=== PATIENT | male | born 1960 | race Caucasian/White ===

== ENCOUNTER 2016-10-15 08:51 | Inpatient (IN) | payer MEDICARE, MEDICAID ==
[~2016-10-15] VITALS: Ht 358.1 cm; Wt 104.0 kg
[~2016-10-15 08:51] MED LIST: DILANTIN 100MG100 MG PO; PHENOBARBITAL100 M1; UNABLE
[2016-11-13] MEDS ORDERED: CELEXA40 MG PO (15:13)
[2016-11-13] MEDS ORDERED: PHENOBARBITAL97.2 MG PO (15:14)
[2016-11-13] MEDS ORDERED: COGENTIN 2MG2 MG/TA1 PO (15:15)
[2016-11-13] MEDS ORDERED: NEURONTIN600 MG/TAB PO (15:15)
[2016-11-13] MEDS ORDERED: CALCIUM 600-D 61 TAB PO (15:16)
[2016-11-13] MEDS ORDERED: MELLARIL PO (15:16)
[2016-11-13] MEDS ORDERED: DILANTIN 100MG100 MG PO (15:17)
[2016-11-13] MEDS ORDERED: ZONEGRAN 100MG100 MG PO (15:17)
[2016-11-13] MEDS ORDERED: MOBIC15 MG PO (15:18)
[2016-11-13] MEDS ORDERED: VITAMIN D 1001000 IU PO (15:18)
[2016-11-13] MEDS ORDERED: PATADAY 2.5 ML2.5 ML OU ×2 (15:19→15:20)
[2016-11-13] MEDS ORDERED: SYSTANE 0.4%-0.1 SOL OU (15:19)
[2016-11-13] MEDS ORDERED: TEARS-ARTIFICIA15 ML OU (15:20)
[2016-12-14] VITALS (10 sets, daily range): BP systolic 103–142; BP diastolic 65–83; PULSE 56–79; TEMP 97.5–97.6
[2016-12-14] MEDS ORDERED: VITAMIN D1000 IU PO (15:19)
[2016-12-15 00:30] VITALS: BP 140/76; PULSE 66; TEMP 98.1
[2016-12-15 04:07] VITALS: BP 132/67; PULSE 72; TEMP 98.1
[2016-12-15 06:41] LABS: HEMOGLOBIN 10.1 g/dl (13.5-18.0)
[2016-12-15 07:41] VITALS: BP 133/67; PULSE 77; TEMP 98.3
[2016-12-15 12:09] VITALS: BP 132/77; PULSE 98
[2016-12-15 15:50] VITALS: BP 121/58; PULSE 88
[2016-12-15 20:47] VITALS: BP 144/93; PULSE 91; TEMP 98.3
[2016-12-16 00:05] VITALS: BP 136/67; PULSE 90; TEMP 98.5
[2016-12-16 04:20] VITALS: BP 139/67; PULSE 89; TEMP 98.6
[2016-12-16 06:53] LABS: HEMOGLOBIN 9.8 g/dl (13.5-18.0)
[2016-12-16 07:35] VITALS: BP 119/58; PULSE 83; TEMP 98.3
[2016-12-16 15:54] VITALS: BP 130/78; PULSE 80
[2016-12-16 22:05] VITALS: BP 163/72; PULSE 97; TEMP 98.4
[2016-12-17 00:53] VITALS: BP 114/57; PULSE 85; TEMP 98.2
[2016-12-17 04:52] VITALS: BP 156/64; PULSE 81; TEMP 98.7
[2016-12-17 07:38] VITALS: BP 95/56; PULSE 68; TEMP 97.5
[2016-12-17 11:33] VITALS: BP 110/57; PULSE 85; TEMP 98.1
== END 2016-12-17 17:06 | DRG 470 ==
LOC: JCC 12-14 06:59
PROVIDERS: Orthopaedic Surgery
PROC: 0SRD0J9 Replacement of Left Knee Joint with Synthetic Substitute, Cemented, Open Approach (ICD-10-PCS; principal; 2016-12-14 10:00)
DX: M17.12 Unilateral primary osteoarthritis, left knee (principal); F79 Unspecified intellectual disabilities; G20 Parkinson's disease; R33.9 Retention of urine, unspecified
CPT/HCPCS: A4315; A9284; C1713; C1776; J0690; J1100; J2250; J2405; J2704; J3010; J7042; J7120

== ENCOUNTER 2016-11-13 14:07 | Day surgery (SDC) | payer MEDICARE, MEDICAID ==
[2016-11-13] VITALS (7 sets, daily range): BP systolic 123–143; BP diastolic 70–75; PULSE 52–78; TEMP 97.3–97.5
[~2016-11-13] VITALS: Ht 175.3 cm; Wt 106.6 kg
[2016-11-13] MEDS ORDERED: CELEXA40 MG PO (15:13)
[2016-11-13] MEDS ORDERED: PHENOBARBITAL97.2 MG PO (15:14)
[2016-11-13] MEDS ORDERED: COGENTIN 2MG2 MG/TA1 PO (15:15)
[2016-11-13] MEDS ORDERED: NEURONTIN600 MG/TAB PO (15:15)
[2016-11-13] MEDS ORDERED: MELLARIL PO (15:16)
[2016-11-13] MEDS ORDERED: CALCIUM 600-D 61 TAB PO (15:16)
[2016-11-13] MEDS ORDERED: ZONEGRAN 100MG100 MG PO (15:17)
[2016-11-13] MEDS ORDERED: DILANTIN 100MG100 MG PO (15:17)
[2016-11-13] MEDS ORDERED: MOBIC15 MG PO (15:18)
[2016-11-13] MEDS ORDERED: VITAMIN D 1001000 IU PO (15:18)
[2016-11-13] MEDS ORDERED: SYSTANE 0.4%-0.1 SOL OU (15:19)
[2016-11-13] MEDS ORDERED: PATADAY 2.5 ML2.5 ML OU ×2 (15:19→15:20)
[2016-11-13] MEDS ORDERED: TEARS-ARTIFICIA15 ML OU (15:20)
== END 2016-11-13 23:32 | disposition home or self-care (01) ==
LOC: SDCO 14:07 → SURG 18:35 → SDCO 23:32
DX: K02.9 Dental caries, unspecified (principal); K00.6 Disturbances in tooth eruption; F79 Unspecified intellectual disabilities; F44.5 Conversion disorder with seizures or convulsions; I10 Essential (primary) hypertension; Z86.010 Personal history of colon polyps; F32.9 Major depressive disorder, single episode, unspecified; G40.909 Epilepsy, unspecified, not intractable, without status epilepticus; M17.9 Osteoarthritis of knee, unspecified; G89.29 Other chronic pain; G20 Parkinson's disease
CPT/HCPCS: OP; J1100; J2405; J2704; J3010; J7120

== ENCOUNTER 2017-01-20 08:05 | Day surgery (SDC) | payer MEDICARE, MEDICAID ==
[~2017-01-20] VITALS: Ht 172.7 cm; Wt 107.3 kg
[~2017-01-20 08:05] MED LIST changes: +CALCIUM 600-D 61 TAB PO; +CELEXA40 MG PO; +COGENTIN 2MG2 MG/TA1 PO; +MELLARIL PO; +MOBIC15 MG PO; +NEURONTIN600 MG/TAB PO; +PATADAY 2.5 ML2.5 ML OU; +PHENOBARBITAL97.2 MG PO; +SYSTANE 0.4%-0.1 SOL OU; +TEARS-ARTIFICIA15 ML OU; +VITAMIN D 1001000 IU PO; +VITAMIN D1000 IU PO; +ZONEGRAN 100MG100 MG PO
[2017-01-20 08:44] VITALS: BP 138/83; PULSE 75; TEMP 97.3
[2017-01-20] MEDS ORDERED: CELEXA40 MG PO (09:12)
[2017-01-20] MEDS ORDERED: DILANTIN 100MG100 MG PO ×2 (09:12→09:19)
[2017-01-20] MEDS ORDERED: PHENOBARBITAL97.2 MG PO (09:13)
[2017-01-20] MEDS ORDERED: COGENTIN 2MG2 MG/TA1 PO (09:14)
[2017-01-20] MEDS ORDERED: MELLARIL PO (09:16)
[2017-01-20] MEDS ORDERED: NEURONTIN600 MG/TAB PO (09:16)
[2017-01-20] MEDS ORDERED: CALCIUM CITRAT200 M2 PO (09:17)
[2017-01-20] MEDS ORDERED: ZONEGRAN 100MG100 MG PO (09:18)
[2017-01-20] MEDS ORDERED: [UNRECOGNIZED DRUG - OTHER] OP (09:19)
[2017-01-20] MEDS ORDERED: MOBIC15 MG PO (09:20)
[2017-01-20] MEDS ORDERED: VITAMIN D31000 I1 PO (09:21)
[2017-01-20] MEDS ORDERED: SYSTANE 0.4%-0.1 SOL OP (09:22)
[2017-01-20] MEDS ORDERED: PATADAY 2.5 ML2.5 ML OU ×2 (09:22→09:23)
[2017-01-20] MEDS ORDERED: GLUCOPHAGE500 MG/TAB PO (09:23)
[2017-01-20] MEDS ORDERED: BLINK OP (09:24)
[2017-01-20] MEDS ORDERED: [UNRECOGNIZED DRUG - SUPPLY] OP (09:26)
== END 2017-01-20 11:25 | disposition home or self-care (01) ==
LOC: SDCO 08:05
DX: N40.1 Benign prostatic hyperplasia with lower urinary tract symptoms (principal); N39.43 Post-void dribbling; R35.0 Frequency of micturition; R35.1 Nocturia; J32.9 Chronic sinusitis, unspecified; I10 Essential (primary) hypertension; G20 Parkinson's disease; Z96.652 Presence of left artificial knee joint

== ENCOUNTER 2017-03-31 07:29 | Observation (INO) | payer MEDICARE, MEDICAID ==
[~2017-03-31] VITALS: Ht 172.7 cm; Wt 106.4 kg
[2017-03-31] VITALS (10 sets, daily range): BP systolic 96–135; BP diastolic 64–87; PULSE 63–85; TEMP 97.1–98.3
[~2017-03-31 07:29] MED LIST changes: +BLINK OP; +CALCIUM CITRAT200 M2 PO; +GLUCOPHAGE500 MG/TAB PO; +SYSTANE 0.4%-0.1 SOL OP; +VITAMIN D31000 I1 PO; +[UNRECOGNIZED DRUG - OTHER] OP; +[UNRECOGNIZED DRUG - SUPPLY] OP
[2017-03-31] MEDS ORDERED: DILANTIN 100MG100 MG PO ×2 (08:32)
[2017-03-31] MEDS ORDERED: PHENOBARBITAL100 M1 PO (08:33)
[2017-03-31] MEDS ORDERED: CELEXA40 MG PO (08:33)
[2017-03-31] MEDS ORDERED: MELLARIL PO (08:34)
[2017-03-31] MEDS ORDERED: COGENTIN 2MG2 MG/TA1 PO (08:34)
[2017-03-31] MEDS ORDERED: NEURONTIN600 MG/TAB PO (08:34)
[2017-03-31] MEDS ORDERED: CALCIUM CITRAT200 M2 PO (08:35)
[2017-03-31] MEDS ORDERED: ZONEGRAN50 MG PO (08:36)
[2017-03-31] MEDS ORDERED: MOBIC15 MG PO (08:37)
[2017-03-31] MEDS ORDERED: FLOMAX 0.40.4 MG/CAP PO (08:38)
[2017-03-31] MEDS ORDERED: VITAMIN D 1001000 IU PO (08:38)
[2017-03-31] MEDS ORDERED: PROSCAR 5MG5 MG PO (08:39)
[2017-04-01] VITALS (7 sets, daily range): BP systolic 123–143; BP diastolic 63–89; PULSE 76–98; TEMP 98.1–99.2
[2017-04-02 03:58] VITALS: BP 136/74; PULSE 84; TEMP 97.8
[2017-04-02 09:37] VITALS: BP 136/79; PULSE 73; TEMP 97.7
[2017-04-02 13:20] VITALS: BP 119/72; PULSE 61; TEMP 97.9
[2017-04-02 18:20] VITALS: BP 158/92; PULSE 69; TEMP 97.9
== END 2017-04-02 18:45 | disposition home health service (06) ==
LOC: SDCO 07:29 → SURG 13:25 → SDCO 14:45 → SURG 04-01 14:45 → SDCO 04-02 13:38 → SURG 04-02 13:38
DX: N40.1 Benign prostatic hyperplasia with lower urinary tract symptoms (principal); R33.8 Other retention of urine; R35.1 Nocturia; R35.0 Frequency of micturition; J32.9 Chronic sinusitis, unspecified; I10 Essential (primary) hypertension; G20 Parkinson's disease; R56.9 Unspecified convulsions; F32.9 Major depressive disorder, single episode, unspecified; M19.90 Unspecified osteoarthritis, unspecified site; Z96.652 Presence of left artificial knee joint
CPT/HCPCS: OP; G0378; J0690; J2370; J2405; J2704; J3010; J7120

== ENCOUNTER 2018-12-17 11:30 | Inpatient (IN) | payer MEDICARE, MEDICAID ==
[~2018-12-17] VITALS: Ht 177.8 cm; Wt 111.4 kg
[~2018-12-17 11:30] MED LIST changes: +FLOMAX 0.40.4 MG/CAP PO; +PHENOBARBITAL100 M1 PO; +PROSCAR 5MG5 MG PO; +ZONEGRAN50 MG PO
[2018-12-17 12:32] LABS: MEAN CELL VOLUME 93 fl (80.0-100.0); MEAN CORPUSCULAR HEMOGLOBIN 32 pg (27.0-31.0); MEAN CORPUSCULAR HGB CONC 34 g/dl (33.0-37.0); MEAN PLATELET VOLUME 9.2 fl (7.4-10.4); PLATELET COUNT 269 K/mm3 (130-400); RED BLOOD COUNT 3.46 M/mm3 (4.20-5.60); REDCELL DISTRIBUTION WIDTH-CV 12.4 % (11.5-14.5)
[2018-12-17 12:36] LABS: HEMATOCRIT 32.1 % (42.0-52.0)
[2018-12-17 12:51] LABS: ALBUMIN 3.9 gm/dL (3.5-5.0); BILIRUBIN,TOTAL 0.3 mg/dL (0.0-1.0); CALCIUM 8.7 mg/dL (8.4-10.2); CREATININE, serum 0.98 (0.66-1.25); POTASSIUM 4.2 mmol/L (3.4-5.0); TOTAL PROTEIN 6.7 gm/dL (6.4-8.2)
[2018-12-17] MEDS ORDERED: PATADAY 2.5 ML2.5 ML OU (12:54)
[2018-12-17] MEDS ORDERED: ZYPREXA2.5 MG PO (12:55)
[2018-12-17] MEDS ORDERED: PRINIVIL5 MG PO (12:56)
[2018-12-17 13:11] LABS: BAND 16 % (0-10); LYMPHOCYTE 11 % (20.0-51.0); NEUTROPHILS 70 % (42.0-75.2); PLATELET ESTIMATE NORMAL (NORMAL)
[2018-12-17 21:15] VITALS: BP 97/53; PULSE 66; TEMP 96.9
[2018-12-17 21:30] VITALS: BP 95/64; PULSE 68
--- NOTE | 2018-12-17 21:44 | NUR ---
Patient to the floor at 2115. Post-op vitals initiated. Patient requested cell phone to make some calls. Alert and oriented. Able to wiggle toes at this time.
[2018-12-17 21:45] VITALS: BP 102/57; PULSE 70
[2018-12-17 21:46] LABS: HEMATOCRIT 29.7 % (42.0-52.0); HEMOGLOBIN 9.8 g/dl (13.5-18.0)
[2018-12-17 22:00] VITALS: BP 113/63; PULSE 65
[2018-12-17 22:30] VITALS: BP 112/81; PULSE 65
[2018-12-17 23:00] VITALS: BP 108/56; PULSE 67
[2018-12-18] VITALS (8 sets, daily range): BP systolic 109–140; BP diastolic 56–74; PULSE 64–110; TEMP 97.4–98.8
--- NOTE | 2018-12-18 05:32 | NUR ---
Patient noted to whistle to try to get staff's attention, and cristina, "heyair". Patient requested to get out of bed and education given about bedrest orders. Patient noted to sleep off and on throughout the night. Left leg able to move and sensation has returned. Will continue to monitor.
[2018-12-18 06:49] LABS: MEAN CELL VOLUME 94 fl (80.0-100.0); MEAN CORPUSCULAR HGB CONC 33 g/dl (33.0-37.0); MEAN PLATELET VOLUME 9.8 fl (7.4-10.4); PLATELET COUNT 173 K/mm3 (130-400); RED BLOOD COUNT 2.86 M/mm3 (4.20-5.60); REDCELL DISTRIBUTION WIDTH-CV 13.8 % (11.5-14.5)
[2018-12-18 06:57] LABS: CALCIUM 7.7 mg/dL (8.4-10.2); CREATININE, serum 0.82 (0.66-1.25); POTASSIUM 4.5 mmol/L (3.4-5.0)
[2018-12-18 07:15] LABS: HEMATOCRIT 26.9 % (42.0-52.0); HEMOGLOBIN 8.8 g/dl (13.5-18.0); MEAN CORPUSCULAR HEMOGLOBIN 31 pg (27.0-31.0)
[2018-12-18 08:46] LABS: BAND 1 % (0-10); LYMPHOCYTE 6 % (20.0-51.0); NEUTROPHILS 80 % (42.0-75.2); PLATELET ESTIMATE NORMAL (NORMAL)
--- NOTE | 2018-12-18 10:04 | NUR ---
LAN met with the patient to discuss a discharge plan. The pt lives in [place]. He attends day services at [facility]. The pt has a cane and reports independence with ADLs. The pt's PCP is Dr. Jeter and pt receives his medications from [facility] with no difficulties. The pt does not have advanced directives in the EMR. The pt plans to return home upon discharge. [facility] staff or his brother will give him a ride home. There are no additional needs at this time.
--- NOTE | 2018-12-18 11:00 | NUR ---
Patient has been doing well today. Denies nausea. Minimal complaints of pain. Has not wanted pain medications this am. One pain pill given earlier before patient worked with PT. Dressing to left leg is C/D/I. SCD's to BLE. СВЕТЛАНА hose to right leg, he would not let us put on the left leg. No other changes at this time. Call light within reach.
--- NOTE | 2018-12-18 18:07 | NUR ---
Patient has been doing well today. He did not get up today but plan is for PT to get him up to the chair tomorrow. His brother came to visit. Patient has not wanted anything for pain. No complaints of nausea. Encouraged him to do ankle pumps. Reminded him to do deep breathing exercises. He verbalized understanding. His car rental sales assistant brought his medications from [facility] that we do not carry, did not sent to pharmacy as they are not here. Placed in patients bin. No other changes at this time. Call light within reach.
--- NOTE | 2018-12-18 21:46 | NUR ---
Pt. laying in bed at this time. Pt. is A&OX3, assessment complete. INT to lt. wrist patent. Dressing to LLE CDI. Jcakson catheter to DD, clear yellow urine noted. Pt. denies pain or other needs at this time.
[2018-12-19 03:43] VITALS: BP 133/67; PULSE 105; TEMP 98.3
[2018-12-19 07:14] LABS: CALCIUM 8.3 mg/dL (8.4-10.2); CREATININE, serum 0.98 (0.66-1.25); POTASSIUM 4.2 mmol/L (3.4-5.0)
[2018-12-19 07:23] LABS: HEMATOCRIT 24.3 % (42.0-52.0)
--- NOTE | 2018-12-19 08:00 | NUR ---
PATIENT IS A&O. PATIENT LIVES AT WHERE HE FELL AND FX HIS LEFT FEMUR. LLE DRESSING IS CD&I WITH ACEWRAP. NOTED +2 SWELLING TO LLE. POSITIVE PEDAL PULSES. PATIENT AMBULATED 1 ASSIST WITH WALKER. PT/OT WORKING WITH HIM. AMBERLY LIU'Kayode EARLY THIS AM BY NUTS AND BOLTS ASSEMBLER. PATIENT DENIES NEED TO VOID AT THIS TIME. NO C/O N/V. IV TO INT. PATIENT REFUSES BREAKFAST AT THIS TIME. AM MEDS GIVEN. HEAD TO TOE ASSESSENT WNL. NO OTHER NEEDS. CALL LIGHT IN REACH.
[2018-12-19 08:10] VITALS: BP 109/68; PULSE 110; TEMP 99.4
[2018-12-19 11:22] VITALS: BP 98/59; PULSE 109; TEMP 98.3
--- NOTE | 2018-12-19 11:30 | NUR ---
LAN attended clinical rounds. The hospitalist discussed therapies recommendation of post-acute rehab. The patient reports that he would be agreeable to rehab. LAN then followed up with the patient to discuss options. The patient reports that he has been to a facility in the past, but could not recall which one. The patient requested that SW contact Fede at [facility] and his brother, Mitch. LAN then contacted Fede, Residential Product Mgmt Dev Manager, at [facility] (ph#[phone]). Fede reports that the patient was at [facility]. She states that she also helps him with his finances. LAN then contacted the patient's brother, Mitch (ph#[phone]), to update on the clinical teams recommendation of post-acute rehab. LAN also discussed how the patient was observation status and how he does not have a qualifying stay for insurance to cover SNF. The patient's brother verbalized understanding. He reports he is in agreeance to the plan of post-acute rehab, but that the patient would not be able to afford to private pay anywhere. LAN then discussed [facility] and [facility]. The patient's brother is agreeable these facilities and to see if [facility] would be covered for services. LAN then met with the patient to review plan. The patient reports that he is agreeable to those three facilities. LAN presented and explained the patient choice form to the patient. The patient verbalized understanding, signed, and he was provided a copy. LAN contacted and faxed a referral to [facility] and [facility]. LAN consulted IPR Director, Aleisha. LAN to continue to follow.
--- NOTE | 2018-12-19 13:15 | NUR ---
PATIENT UNABLE TO VOID AFTER SEVERAL ATTEMPTS. INTEGRATION LEAD REMOVED GAMING BEFORE SHIFT CHANGE. PATIENT STILL DENIES URGE TO VOID. BLADDER SCAN SHOWED OVER 500CC. STRAIGHT CATHED PERFORMED AND UA SENT.
[2018-12-19 13:35] LABS: COLLECTION METHOD CLEAN CATCH
[2018-12-19 13:43] LABS: MUCOUS Present /lpf; PH 5 (5-8); SQUAMOUS EPITHELIAL 0-2 /hpf; URINE APPEARANCE Hazy; URINE BACTERIA Rare /hpf; URINE BILIRUBIN Negative (NEGATIVE); URINE BLOOD 2+ (NEGATIVE); URINE COLOR Yellow; URINE GLUCOSE Negative (NEGATIVE); URINE KETONE Negative (NEGATIVE); URINE LEUKOCYTE ESTERASE Negative (NEGATIVE); URINE NITRATE Negative (NEGATIVE); URINE PROTEIN(semi-quant) Negative (NEGATIVE); URINE RBC 0-2 /hpf; URINE UROBILINOGEN Negative (NEGATIVE)
[2018-12-19 15:51] VITALS: BP 133/52; PULSE 93; TEMP 98.5
--- NOTE | 2018-12-19 18:15 | NUR ---
PATIENT STILL HAS NOT VOIDED SINCE STRAIGHT CATH AROUND 1300. PATIENT DENIES NEED TO VOID. PATIENT AGREED TO TRY BUT WAS UNABLE TO VOID. BLADDER SCAN SHOWED 237CC. PATIENT ENCOURAGED TO INCREASE FLUIDS. WILL MONITOR.
[2018-12-19 20:00] VITALS: BP 130/59; PULSE 102; TEMP 99.6
--- NOTE | 2018-12-19 20:00 | NUR ---
Pt. laying in bed at this time. Pt. is A&OX3, assessment complete. INT to lt. wrist patent. Dressing to lt. leg CDI. Pt. assisted to the bathroom with 2 assist, gait belt and walker. Pt. attempted to urinate. Pt. was able to get 50 mls of urine out. Pt. reported that he sometimes has trouble with this at home. Will continue to monitor. Pt. denies pain or other needs at this time. Call light within reach.
--- NOTE | 2018-12-19 22:15 | NUR ---
Checked if pt. has the urge to urinate. Pt. denies urge. Pt. bladderscanned at this time. Pt. has 303 mls in bladder at this time according to the bladderscanner. Will continue to monitor.
[2018-12-19 23:37] VITALS: BP 119/56; PULSE 105; TEMP 98.5
[2018-12-20] VITALS (9 sets, daily range): BP systolic 99–139; BP diastolic 48–87; PULSE 85–106; TEMP 98–99.1
--- NOTE | 2018-12-20 03:00 | NUR ---
Pt. bladder scanned at this time. Bladder scanner report showed 600 mls to bladder. Pt. attempted to urinate without success. Straight cathed at this time. Pt. tolerated well. 900 mls from bladder.
[2018-12-20 07:16] LABS: MEAN CELL VOLUME 95 fl (80.0-100.0); MEAN CORPUSCULAR HGB CONC 34 g/dl (33.0-37.0); MEAN PLATELET VOLUME 9.7 fl (7.4-10.4); PLATELET COUNT 177 K/mm3 (130-400); REDCELL DISTRIBUTION WIDTH-CV 14.5 % (11.5-14.5)
--- NOTE | 2018-12-20 07:24 | NUR ---
report from Rosas BADILLO.
[2018-12-20 07:43] LABS: HEMATOCRIT 21.8 % (42.0-52.0); HEMOGLOBIN 7.3 g/dl (13.5-18.0); MEAN CORPUSCULAR HEMOGLOBIN 32 pg (27.0-31.0)
[2018-12-20 08:12] LABS: BASOPHIL 1 % (0-2); LYMPHOCYTE 9 % (20.0-51.0); NEUTROPHILS 86 % (42.0-75.2); PLATELET ESTIMATE NORMAL (NORMAL)
--- NOTE | 2018-12-20 09:05 | NUR ---
GAMING CATHETER PLACED WITH OUT ISSUES USING CLEAN TECHNIQUE. YELLOW CLEAR URINE RETURNED IMMEDIATELY UPON PLACEMENT, PATIENT TOLERATED PROCEEDURE WELL.
--- NOTE | 2018-12-20 09:32 | NUR ---
BLOOD TRANSFUSION BEGAN, GAMING PLACED PT TOLERATING WELL. [facility] REPS HERE TO SPEAK WITH PATIENT. PT DENIES PAIN AT THIS TIME.
--- NOTE | 2018-12-20 09:51 | NUR ---
Kt, at [facility], reports that they can accept the patient. SW to inform the patient and patient's brother and will continue to follow.
--- NOTE | 2018-12-20 11:41 | NUR ---
LAN contacted and faxed updates to Roly at [facility].
--- NOTE | 2018-12-20 15:39 | NUR ---
LAN contacted Fede, at [facility], to follow up on the services and support that they provide for the patient. Fede reports that they see him daily and that they take him grocery shopping, help with banking, light housekeeping, and provide transportation for him. Fede reports that if the patient is in need of more services upon discharge from either [facility], [facility], or [facility]; that they could transition him into a 24 hour longterm, if needed. LAN updated IPR Director, Aleisha. LAN to continue to follow.
--- NOTE | 2018-12-20 19:03 | NUR ---
report to Shaneka RN.
--- NOTE | 2018-12-20 20:30 | NUR ---
Patient assisted to BSC, thinks he needs to have a BM. Is NWB to left leg, has brace on and assisted with 2 staff/gait belt and walker. Only passes gas and assisted back to bed. Takes HS meds without problem. Denies pain to left leg. SL to left wrist without redness or swelling. Jackson to BSD with yellow urine.
[2018-12-21 04:15] VITALS: BP 131/61; PULSE 87; TEMP 98.6
--- NOTE | 2018-12-21 06:00 | NUR ---
Patient rested well this shift. Jackson draining yellow urine. Denies need for pain meds.
--- NOTE | 2018-12-21 06:52 | NUR ---
awake resting in bed, bedside shift report received from ABY Munroe
[2018-12-21 06:53] LABS: BASO % 0.4 % (0.0-2.0); GRAN # 5.2 (1.4-6.5); GRAN % 73.3 % (42.2-75.2); LYMPH # 0.8 (1.2-3.4); LYMPH % 11.2 % (20.0-51.0); MEAN CELL VOLUME 96 fl (80.0-100.0); MEAN CORPUSCULAR HGB CONC 32 g/dl (33.0-37.0); MEAN PLATELET VOLUME 9.6 fl (7.4-10.4); MONO % 14.1 % (1.7-9.3); PLATELET COUNT 216 K/mm3 (130-400); RED BLOOD COUNT 2.67 M/mm3 (4.20-5.60); REDCELL DISTRIBUTION WIDTH-CV 14.4 % (11.5-14.5)
[2018-12-21 06:54] LABS: HEMATOCRIT 25.6 % (42.0-52.0); HEMOGLOBIN 8.3 g/dl (13.5-18.0); MEAN CORPUSCULAR HEMOGLOBIN 31 pg (27.0-31.0)
[2018-12-21 07:07] LABS: CALCIUM 8.5 mg/dL (8.4-10.2); CREATININE, serum 0.87 (0.66-1.25); POTASSIUM 4.1 mmol/L (3.4-5.0)
[2018-12-21 07:55] VITALS: BP 107/58; PULSE 87; TEMP 98.2
--- NOTE | 2018-12-21 07:55 | NUR ---
awake resting in bed, full assessment completed, see interventions for further info, when asked about pain doesn't really acknowledge and optional pain scale used, offered breakfast and states he doesn't eat breakfast usually, encouraged and offered options but continues to decline, denies other needs
--- NOTE | 2018-12-21 10:00 | NUR ---
remains resting in bed, WHEAT FARMER in and assisted him with am care
--- NOTE | 2018-12-21 11:02 | NUR ---
First visit from the trade manager. No needs right now.
--- NOTE | 2018-12-21 11:30 | NUR ---
physical therapy in and assisted him with getting up to chair
[2018-12-21 11:57] VITALS: BP 113/43; PULSE 88; TEMP 98.2
[2018-12-21 13:19] VITALS: BP 113/43; PULSE 88; TEMP 98.2
--- NOTE | 2018-12-21 13:34 | NUR ---
Aleisha, IPR Director, reports that she can accept the patient. LAN updated the patient on referrals and he is agreeable to transfer to [facility] today. LAN updated Deborah at [facility] and Mi at [facility]. LAN contacted the patient's brother, Mitch, and updated him on the plan. The patient's brother is supportive of the patient tranferring to [facility]. LAN also attempted to contact Fede at [facility]. LAN left voicemail. The patient is to discharge today, 12/21, to [facility]. No additional needs at this time.
--- NOTE | 2018-12-21 13:52 | NUR ---
remains up in chair, Dr Thao in and will plan discharged to [facility]
[2018-12-21] MEDS ORDERED: ASPI325T6 PO (14:04)
[2018-12-21] MEDS ORDERED: NORCO 325 MG-7.1 TAB PO (14:04)
[2018-12-21] MEDS ORDERED: FLOMAX 0.40.4 MG/CAP PO (14:04)
[2018-12-21] MEDS ORDERED: GOOD NEIGH1200 MG/15 PO (14:06)
--- NOTE | 2018-12-21 14:17 | NUR ---
guse wrap to left leg removed, incision to lateral hip/knee with bisi CD&I, without drainage, aquacel dressing cut to fit and placed over incision, СВЕТЛАНА allen on
--- NOTE | 2018-12-21 14:30 | NUR ---
СВЕТЛАНА allen on
--- NOTE | 2018-12-21 15:25 | NUR ---
report given to ABY Mallory at [facility]patient Rehab, transferred per WC
[2018-12-22] MEDS ORDERED: DESYREL DIVIDO150 M1 PO (13:17)
== END 2018-12-21 15:25 | DRG 481 ==
LOC: COL.ER 11:30 → SURG 13:31 → COL.ER 13:31 → SURG 13:31
PROVIDERS: Nurse Anesthetist, Certified Registered; Nurse Practitioner; Nurse Practitioner Family; Orthopaedic Surgery; ADMIT Family Medicine
PROC: 0QSC04Z Reposition Left Lower Femur with Internal Fixation Device, Open Approach (ICD-10-PCS; principal; 2018-12-17 15:30)
DX: S72.402A Unspecified fracture of lower end of left femur, initial encounter for closed fracture (principal); E87.1 Hypo-osmolality and hyponatremia; D62 Acute posthemorrhagic anemia; I10 Essential (primary) hypertension; S80.212A Abrasion, left knee, initial encounter; F79 Unspecified intellectual disabilities; W18.30XA Fall on same level, unspecified, initial encounter; Y92.89 Other specified places as the place of occurrence of the external cause; R33.9 Retention of urine, unspecified; G20 Parkinson's disease; F32.9 Major depressive disorder, single episode, unspecified; G40.909 Epilepsy, unspecified, not intractable, without status epilepticus; Z96.652 Presence of left artificial knee joint; Z88.8 Allergy status to other drugs, medicaments and biological substances; Z88.2 Allergy status to sulfonamides
CPT/HCPCS: OP; 99232-AI; 99233-AI; 99239; A4216; A4314; C1713; C1776; G0378; J0690; J0696; J2250; J2270; J2370; J2405; J2704; J3010; J7030; P9016

== ENCOUNTER → 2019-01-02 | Outpatient (CLI) | payer MEDICARE, MEDICAID ==
[~2019-01-02] MED LIST changes: +ASPI325T6 PO; +COLACE 100100 MG/CAP PO; +DESYREL DIVIDO150 M1 PO; +DULCOLAX S10 MG/SUPP RC; +FERROUS SU325 MG/TAB PO; +GOOD NEIGH1200 MG/15 PO; +MIRALAX PA17 GM/Dose PO; +NORCO 325 MG-7.1 TAB PO; +PRINIVIL5 MG PO; +SENOKOT S 50 MG1 TAB PO; +TYLENOL 325MG325 MG PO; +ZYPREXA2.5 MG PO
[2019-01-02 18:41] LABS: BASO % 0.7 % (0.0-2.0); GRAN # 4.2 (1.4-6.5); LYMPH # 0.8 (1.2-3.4); LYMPH % 14.3 % (20.0-51.0); MEAN CELL VOLUME 98 fl (80.0-100.0); MEAN CORPUSCULAR HGB CONC 32 g/dl (33.0-37.0); MEAN PLATELET VOLUME 8.8 fl (7.4-10.4); MONO # 0.7 (0.1-0.6); MONO % 11.6 % (1.7-9.3); PLATELET COUNT 559 K/mm3 (130-400); RED BLOOD COUNT 3.02 M/mm3 (4.20-5.60); REDCELL DISTRIBUTION WIDTH-CV 13.9 % (11.5-14.5)
[2019-01-02 18:49] LABS: HEMATOCRIT 29.5 % (42.0-52.0); HEMOGLOBIN 9.4 g/dl (13.5-18.0); MEAN CORPUSCULAR HEMOGLOBIN 31 pg (27.0-31.0)
[2019-01-02 18:54] LABS: CALCIUM 9.1 mg/dL (8.4-10.2); CREATININE, serum 0.84 (0.66-1.25); POTASSIUM 4.7 mmol/L (3.4-5.0)
== END ==
LOC: ZCOL.LAB 16:36
PROVIDERS: Emergency Medicine
DX: D50.0 Iron deficiency anemia secondary to blood loss (chronic) (principal); I10 Essential (primary) hypertension

== ENCOUNTER → 2019-03-16 | Outpatient (CLI) | payer MEDICARE, MEDICAID ==
[2019-03-16 11:03] LABS: PHENYTOIN (DILANTIN) 3.1 ug/mL (10.0-20.0)
== END ==
LOC: ZCOL.LAB 09:46
PROVIDERS: Emergency Medicine
DX: D50.0 Iron deficiency anemia secondary to blood loss (chronic) (principal); E11.9 Type 2 diabetes mellitus without complications; E55.9 Vitamin D deficiency, unspecified; G20 Parkinson's disease

== ENCOUNTER 2019-05-18 11:30 | Outpatient (RCR) | payer MEDICARE, MEDICAID | END 2019-06-12 16:11 | disposition home or self-care (01) | LOC: WSC 11:30 | DX: Z98.890 Other specified postprocedural states (principal) ==

== ENCOUNTER 2023-06-15 12:14 | Inpatient (IN) | payer MEDICARE, MEDICAID ==
[~2023-06-15] VITALS: Ht 172.7 cm; Wt 98.7 kg
[~2023-06-15 12:14] MED LIST changes: +CALCIUM CITRAT200 M2; +CELEXA 20MG20 MG/TAB PO; +DUO-KAPS1 CAP PO; +LEVOXYL0.05 MG PO; +LIPITOR20 MG PO; +ROXICODONE 55 MG/TAB PO; +VITAMIN C500 MG PO
--- NOTE | 2023-06-15 12:45 | NUR ---
RECIEVED REPORT FROM [facility] MARINATOR AROUND 1238, PT WAS ALREADY IN THE ROOM. UPON INTRODUCING MYSELF TO PT HE IS ALERT AND ORIENTED TO SELF AND SITUATION. HES NOT CONFUSED HOWEVER DEVELOPMENTALLY DELAYED BEHAVIORS NOTED. VSS, SHIFT ASSESSMENT COMPLETE. PT HAS A GUARDIAN WHOM I THINK HE REFERS TO [facility]. HE ASKED ME TO SPEAK WITH HER TODAY AND I REFERRED HIM TO HAVE MRI TECHNICIAN SPEAK WITH HER. SLIGHTLY UNCLEAR SPEECH WHEN TELLING REPETITIVE STORIES. VERY PLEASANT GENTLEMAN, AND COOPERATIVE. AMBULATES WITH ONE PERSON ASSIST W FWW. DENIES PAIN AT THIS TIME, USES ICE PACK FOR L HIP DISCOMFORT. DENIES NEED FOR ANTHING FURTHER AT THIS TIME.
[2023-06-15 13:00] VITALS: BP_SYST 113
[2023-06-15] MEDS ORDERED: Acetaminophen 325 MG TAB PO PRN (13:00)
[2023-06-15] MEDS ORDERED: Sennosides/Docusate 8.6-50 MG TAB PO PRN (13:00)
[2023-06-15] MEDS ORDERED: Docusate Sodium 100 MG CAP PO PRN (13:00)
[2023-06-15] MEDS ORDERED: Naloxone 0.4 MG/ML VIAL IV PRN (13:00)
[2023-06-15] MEDS ORDERED: Polyethylene Glycol 3350 17 GM PDS PO PRN (13:00)
[2023-06-15] MEDS ORDERED: oxyCODONE 5 MG TAB PO PRN (13:15)
[2023-06-15] MEDS ORDERED: Ketotifen 0.025% Ophth Soln 5 ML BOTTLE OP SCH (14:00)
[2023-06-15] MEDS ORDERED: Gabapentin 300 MG CAP PO SCH (14:00)
[2023-06-15 14:43] VITALS: BP 113/69; PULSE 107; TEMP 97.6
[2023-06-15 17:22] VITALS: BP_SYST 113
[2023-06-15 18:02] VITALS: BP 125/72; PULSE 92; TEMP 98.2
[2023-06-15 19:00] VITALS: BP_SYST 125
--- NOTE | 2023-06-15 19:07 | NUR ---
RECEIVED CHANGE OF SHIFT REPORT FROM DAY SHIFT NURSE. PATIENT RESTING IN BED, EXIT ALARM ON, CALL LIGHT IN REACH.
[2023-06-15] MEDS ORDERED: OLANZapine 5 MG TAB PO SCH (20:00)
[2023-06-15] MEDS ORDERED: Citalopram 20 MG TAB PO SCH (20:00)
--- NOTE | 2023-06-15 20:40 | NUR ---
BLADDER SCAN AFTER VOIDED, 726 ML PER BLADDER SCAN. STRAIGHT CATH WITH 14 [place] STRAIGHT CATHETER, PER HOSP P/P, EMPTIED OUT 800 ML URINE. PATIENT TOLERATED STR CATH WITH NO VERBALIZED COMPLAINTS OF PAIN.
[2023-06-15] MEDS ORDERED: Zonisamide 100 MG CAP PO SCH (21:00)
[2023-06-15] MEDS ORDERED: Zonisamide 25 MG CAP PO SCH (21:00)
[2023-06-15] MEDS ORDERED: Benztropine 1 MG TAB PO SCH (21:00)
[2023-06-15] MEDS ORDERED: traZODone 50 MG TAB PO SCH (21:00)
[2023-06-15] MEDS ORDERED: Calcium Citrate/Vit D3 200 mg-250 Units TAB PO SCH (21:00)
[2023-06-15] MEDS ORDERED: PHENobarbital 32.4 MG TABLET PO SCH (21:00)
[2023-06-15] MEDS ORDERED: Atorvastatin 20 MG TAB PO SCH (21:00)
--- NOTE | 2023-06-16 04:36 | NUR ---
PATIENT ATTEMPTED TO VOID, UNABLE TO VOID WITH COMPLAINTS OF BLADDER FULLNESS AND DISCOMFORT FROM FULLNESS. STRAIGHT CATH PERFORMED, EMPTIED OUT 600 ML WITH PATIENT REPORTING DISCOMFORT SUBSIDED AND BLADDER NO LONGER FELT FULL. RESTING IN BED, EXIT ALARM ON, CALL LIGHT IN REACH.
[2023-06-16 05:20] VITALS: BP 142/65; PULSE 75; TEMP 98.7
[2023-06-16 07:00] VITALS: BP_SYST 142
--- NOTE | 2023-06-16 07:22 | NUR ---
CHANGE OF SHIFT REPORT GIVEN TO DAY SHIFT NURSE, CARLENE. DR ANDRADE PRESENT AND INFORMED OF PATIENT NEEDS TO BE STRAIGHT CATH X2 DURING NIGHT. PATIENT RESTING IN BED WITH EXIT ALARM ON, CALL LIGHT IN REACH.
--- NOTE | 2023-06-16 08:00 | NUR ---
PT IS ALERT, ORIENTED TO SELF AND PLACE. ASSESSED. DENIES PAIN THIS MORNING, HE DOES NOT EAT BREAKFAST, ONLY CHEESEBURGERS WITH SCOTTISH CHEESE AND KETCHUP AND FRIES WITH A FRUIT CUP FOR LUNCH AND DINNER. NURING STAFF HAS TO CALL FOR HIM. PT NOT ABLE TO CALL. MEDICATED PER EMAR, CALL LIGHT WITHIN REACH. BED ALARM SET.
[2023-06-16] MEDS ORDERED: OLOPATADINE 0.2% OP SCH (09:00)
[2023-06-16] MEDS ORDERED: [UNRECOGNIZED DRUG - OTHER] OP SCH (09:00)
[2023-06-16] MEDS ORDERED: Ascorbic Acid 500 MG TAB PO SCH (09:00)
[2023-06-16] MEDS ORDERED: Multivitamin TAB PO SCH (12:00)
--- NOTE | 2023-06-16 12:10 | NUR ---
Will lack of transportation kept you from medical appts, meetings, work, or from getting things needed for daily living? no How often do you feel lonely or isolated from those around you? never Over the past 5 days, how much of the time has pain made it hard for you to sleep? occasionally Over the past 5 days, how often have you limited your participation in therapy due to pain? occasionally Over the past 5 days, how often have you limited your day-to-day activities because of pain? occasionally Have you had 2 or more falls in the past year or any fall with an injury? yes Did you have major surgery during the 100 days prior to admission? yes
--- NOTE | 2023-06-16 12:43 | NUR ---
PT WAS BLADDER SCANNED AND WAS FOUND TO HAVE 224ML IN BLADDER. WILL CONTINUE TO OFFER RESTROOM, AND SCAN PER ORDERS.
--- NOTE | 2023-06-16 13:49 | NUR ---
Follow-up: Patient told [employer] Flatbed Truck Driver to come in and set down and he would tell her what is going on with him. listened to Henrry who explained how to reach his Guardian and various other bits of information. mentioned that he must be really working hard and he said he is and will be discharged after five weeks. wished him well several times before Henrry would take notice that she was leaving. Nurse thanked for visiting.
--- NOTE | 2023-06-16 15:02 | NUR ---
PT WAS ABLE TO VOID AND HAVE A BOWEL MOVEMENT THIS AFTERNOON.
--- NOTE | 2023-06-16 16:27 | NUR ---
SW attend team meeting for pt regaridng discharge planning. Pt is a re-eval for next week. No known equipment needs at this time. LAN met with pt and provided team conference notes. He was not fully oriented to LAN and what she was saying. He instructed SW to call Dr. Edgar [phone]. LAN called co-guardian Dr. Edgar and completed intake information. She confirms pt lives alone in [place]. She reports he sees Dr. Hopson and obtains medications from [facility] with no issues. She reports he has no stairs at his apartment and [employer] assists with driving him to appointments. He has a rolator walker for DME. He needs prompting for ADLS. LAN verified guardianship on file. LAN sent updates to [employer]. SW recieved guardianship papers from them. Placed on the chart. Discharge Plan: re-eval
[2023-06-16 17:43] VITALS: BP 119/66; PULSE 84; TEMP 98.1
[2023-06-16 18:30] VITALS: BP_SYST 119
--- NOTE | 2023-06-16 19:00 | NUR ---
PT DENIED NEED TO VOID. BLADDER SCAN WITH 224 CC RESIDUAL.
--- NOTE | 2023-06-16 21:00 | NUR ---
PT RESTING IN SPECIALTY BED. ALERT & ORIENTED. VOICE IS LOUD. SPEECH SOMETIMES DIFFICULT TO UNDERTAND. VERY PLEASANT AND COOPERATIVE. PT C/O LT HIP PAIN. SEE MAR FOR OXYCODONE GIVEN. FRESH ICE PACK TO LT HIP PLACED. ENC PT TO SHIFT WEIGHT PERIODICALLY- SEE SKIN ASSESSMENT. ENC ANKLE EXERCISES TO PROMOTE CIRCULATION. REQUESTED PT TO ATTEMPT VOID. DENIES NEED. WOULD NOT TRY. BLADDER SCANNED WITH 501ML. NO REDNESS TO GROIN AREAS REPORTED FROM LAST NURSE. SEIZURE PRECAUTIONS IN PLACE.
--- NOTE | 2023-06-17 01:30 | NUR ---
LICENSED REACTOR OPERATOR ASSISTED PT TO BR. UNABLE TO VOID. BLADDER SCANNED 1000CC.
--- NOTE | 2023-06-17 01:50 | NUR ---
STRAT CATH INSERTED FOR URINARY RETENTION. 1050CC CC CLEAR YELOW URINE OBTAINED.
[2023-06-17 05:56] VITALS: BP 137/70; PULSE 81; TEMP 98.2
--- NOTE | 2023-06-17 06:09 | NUR ---
PT UNABLE TO VOID. BLADDER SCANNED- 617CC RESIDUAL. STRAT CATH WITH 700CC CLEAR YELLOW URINE. NEW ICE PACK TO LT HIP,
[2023-06-17 07:00] VITALS: BP_SYST 137
--- NOTE | 2023-06-17 14:29 | NUR ---
dental laboratory worker called pt's co-guardian Dr. Edgar [phone] to discuss a family meeting. LAN informed Tala of the options/times. She said Wednesday would not work for her. LAN offered June 25 at 9:30am. Tala said she will attend in person. LAN called "[employer]" [phone] to offer her the above meeting time. She said she will attend via phone. LAN informed [facility] Director Aleisha. LAN faxed udpates to [facility] f: [phone]. Discharge Plan: re-eval
[2023-06-17 17:44] VITALS: BP 103/57; PULSE 82; TEMP 98.1
[2023-06-17 18:30] VITALS: BP_SYST 103
--- NOTE | 2023-06-17 20:00 | NUR ---
PT RESTING IN BED. SHIFT REPORT FROM KEI ALARCON RN INDICATED PT HAD VOIDED W/ NO RESIDUAL PER BS. PT RELATED MILD PAIN TO LT HIP. ICE PACK REFRESHED. TAKES HS MEDS WELL. CALLL LIGHT IN REACH. BED ALARM SET.
--- NOTE | 2023-06-18 01:31 | NUR ---
PT ATTEMPTED TO VOID. UNABLE TO. BLADDER SCAN RESIDUAL 888CC.
--- NOTE | 2023-06-18 01:45 | NUR ---
STRAT CATH #14FR WITH IMMEDIATE RETURN OF 750CCCLEAR YELLOW URINE.
[2023-06-18 05:36] VITALS: BP 142/75; PULSE 78; TEMP 98.2
--- NOTE | 2023-06-18 06:10 | NUR ---
PT UNABLE TO VOID. BLADDER SCAN WAS 453.
--- NOTE | 2023-06-18 06:36 | NUR ---
ASSISTED PT TO BR WITH WALKER. VOIDED 550CC CLEAR YELLOW URINE. HAD MED SOFT FORMED BROWN STOOL. BACK TO BED. CALL LIGHT IN REACH. BED ALARM SET.
[2023-06-18 07:00] VITALS: BP_SYST 142
--- NOTE | 2023-06-18 09:44 | NUR ---
PT UP TO BR VOIDED AND BM. RETURNED TO BED, ATE BREAKFAST, AM MEDS GIVEN ORDERED. PT CONTINUES TO IMPROVE WITH THERAPY. AMBULATES WITH SLOW UNSTEADY GAIT. PT IS A RESIDENT OF [facility]. PT REFUSES BREAKFAST. DRINKS DR. AGOSTO, EATS CHEESEBURGERS AND FRIES, PT DENIES NEEDS.
--- NOTE | 2023-06-18 10:05 | NUR ---
Follow-up; Henrry is anxious this morning, wanting to know why he hasn't gotten his shower and if he is going to be discharged. He was confused about who Bread Racker was so she told him again that she was Bread Racker and wasn't informed about any of his 'personal care' issues. She listened awhile and excused herself.
--- NOTE | 2023-06-18 10:15 | NUR ---
Pt off unit w/ PT.
--- NOTE | 2023-06-18 13:29 | NUR ---
craft worker faxed updates to [facility]. Discharge Plan: Re-eval
--- NOTE | 2023-06-18 15:02 | NUR ---
Admission QIM scores were reviewed by the team. Code of 6 chosen for eating was determined by team discussion to be the most usual performance before interventions for this patient during the assessment period. Code of 4 chosen for oral hygiene was determined by team discussion to be the most usual performance before interventions for this patient during the assessment period. Code of 2 chosen for toileting hygiene was determined by team discussion to be the most usual performance for this patient during the discharge assessment period. Code of 88 chosen for toilet transfers was determined by team discussion to be the most usual performance for this patient during the discharge assessment period. Code of 4 chosen for upper body dressing was determined by team discussion to be the most usual performance before interventions for this patient during the assessment period. Code of 2 chosen for lower body dressing was determined by team discussion to be the most usual performance before interventions for this patient during the assessment period. Code of 2 chosen for putting on/taking off footwear was determined by team discussion to be the most usual performance before interventions for this patient during the assessment period. Code of 3 chosen for sit to lying was determined by team discussion to be the most usual performance before interventions for this patient during the assessment period. Code of 3 chosen for lying to sitting side of bed was determined by team discussion to be the most usual performance before interventions for this patient during the assessment period.--PD Noel
[2023-06-18 17:24] VITALS: BP 129/62; PULSE 94; TEMP 98.2
[2023-06-18 19:00] VITALS: BP_SYST 129
[2023-06-19 05:27] VITALS: BP 144/71; PULSE 79; TEMP 98
[2023-06-19 17:12] VITALS: BP 144/76; PULSE 80; TEMP 98
[2023-06-19 19:00] VITALS: BP_SYST 144
--- NOTE | 2023-06-19 20:15 | NUR ---
PT IN BED, JUST RETURNED FROM BATHROOM WITH STAFF. HS MEDS GIVEN WITHOUT PROBLEM. DRSG TO LT HIP CHANGED D/T ROLLING DOWN, INCISION APPROXIMATED WELL. HAS ABRASION TO RT MARRERO, PLACED SCDS ON PT PER HIS REQUEST. NEW ICE PACK PLACED TO LT HIP. PT IS ALERT AND ORIENTED, MILD COGNITIVE DEFICIT.
[2023-06-20 05:57] VITALS: BP 132/72; PULSE 72; TEMP 98
[2023-06-20 06:30] VITALS: BP_SYST 132
--- NOTE | 2023-06-20 10:06 | NUR ---
SHIFT ASSESSMENT COMPLETE. VSS. PATIENT UP TO CHAIR WATCHING TV. ALL MORNING MEDS GIVEN PER ORDERS. PATIENT HAS NO REQUEST OR COMPLAINTS AT THIS TIME. FALL PRECAUTIONS IN PLACE AND CALL LIGHT IN REACH.
[2023-06-20 17:11] VITALS: BP 132/70; PULSE 88; TEMP 97.9
[2023-06-20 19:22] VITALS: BP_SYST 132
--- NOTE | 2023-06-20 19:23 | NUR ---
RECEIVED CHANGE OF SHIFT REPORT FROM DAY SHIFT NURSE.
--- NOTE | 2023-06-21 02:42 | NUR ---
PATIENT RESTING IN BED WITH EYES CLOSED, BREATHING EVEN AND NONLABORED. EXIT ALARM ON, CALL LIGHT IN REACH.
[2023-06-21 05:23] VITALS: BP 133/72; PULSE 76; TEMP 98.2
--- NOTE | 2023-06-21 07:04 | NUR ---
Change of shift report given to day shift nurseGanga.
[2023-06-21 07:13] VITALS: BP_SYST 133
--- NOTE | 2023-06-21 07:14 | NUR ---
Shift report received from night RN. No events reported overnight. Pt sitting up in recliner for breakfast. Denies pain/discomfort or other needs. Call light in reach. Fall precautions in place.
--- NOTE | 2023-06-21 14:57 | NUR ---
Air Conditioning Equipment Mechanic contacted [employer] and faxed clinical updates. SW also left message for Tala, Co Guardian checking in to see if she had any questions or concerns.
--- NOTE | 2023-06-21 17:17 | NUR ---
Pt sitting up in bed eating dinner independently. Pt sat up in recliner for breakfast & for lunch. Pt has used ice pack to L hip intermittently throughout the shift today for L hip pain. He has denied the need for pain medication today. No issues or difficulty w/ urination today. Pt denies any needs at this time. Call light in his reach. Fall precautions in place.
[2023-06-21 18:00] VITALS: BP 136/75; PULSE 79; TEMP 97.6
[2023-06-21 19:04] VITALS: BP_SYST 136
--- NOTE | 2023-06-21 19:05 | NUR ---
RECEIVED CHANGE OF SHIFT REPORT FROM DAY SHIFT NURSE. PATIENT RESTING IN BED, EXIT ALARM ON, CALL LIGHT IN REACH.
--- NOTE | 2023-06-21 23:47 | NUR ---
PATIENT RESTING IN BED, EXIT ALARM ON, DENIED ANY PAIN OR NEEDS WHEN AWAKE. CALL LIGHT IN REACH.
[2023-06-22 04:57] VITALS: BP 150/78; PULSE 82; TEMP 98.6
--- NOTE | 2023-06-22 06:54 | NUR ---
CHANGE OF SHIFT REPORT GIVEN TO DAY SHIFT NURSEMARIO.
[2023-06-22 07:00] VITALS: BP_SYST 150
[2023-06-22 17:20] VITALS: BP 116/68; PULSE 92; TEMP 98.1
[2023-06-22 19:05] VITALS: BP_SYST 116
--- NOTE | 2023-06-22 19:10 | NUR ---
RECEIVED CHANGE OF SHIFT REPORT FROM DAY SHIFT NURSE. PATIENT RESTING IN BED, EXIT ALARM ON, CALL LIGHT IN REACH.
[2023-06-23 05:04] VITALS: BP 119/65; PULSE 81; TEMP 98
--- NOTE | 2023-06-23 07:28 | NUR ---
RECIEVED REPORT FROM DEALER COMPLIANCE REPRESENTATIVE KALEY BADILLO.
[2023-06-23 07:29] VITALS: BP_SYST 119
--- NOTE | 2023-06-23 07:37 | NUR ---
CHANGE OF SHIFT REPORT GIVEN TO DAY SHIFT NURSECARLENE.
--- NOTE | 2023-06-23 11:58 | NUR ---
Pt alert and oriented, VSS. No c/o pain at this time. Medicated per emar, shift assessment complete. Voiding ok without staright cath. Is wanting to get back home because his friends miss him. Denies further need at this time. Call light within reach, bed alarm set.
--- NOTE | 2023-06-23 15:59 | NUR ---
Bakery Technician attended team conference and discharge date of Wednesday was discussed. LAN contacted patient's co-guardian, Tala to provide update and move up family meeting to tomorrow at 0930. LAN inquired about the possibility of patient going to a prison temporarily as patient had been telling this to staff. Tala advised this was likely "wishful thinking" on patient's part as she has heard nothing about this. LAN contacted [employer] Consultant and sent updates via secure email. LAN also provided time and date of family meeting. LAN met with patient to provide copy of team conference notes and notify him of meeting tomorrow.
[2023-06-23 17:00] VITALS: BP 122/47; PULSE 77; TEMP 98.7
[2023-06-23 19:00] VITALS: BP_SYST 122
--- NOTE | 2023-06-23 20:36 | NUR ---
PATIENT DOES NOT APPEAR TO BE IN DISTRESS. NO PAIN OR DISCOMFORT PER PATIENT. ICE APPLIED TO HIP. BED IN LOW POSITION AND CALL LIGHT WITHIN REACH. PATIENT HAS NO QUESTIONS OR CONCERNS AT THIS TIME.
[2023-06-24 05:14] VITALS: BP 136/74; PULSE 88; TEMP 98.3
[2023-06-24 07:02] VITALS: BP_SYST 136
--- NOTE | 2023-06-24 07:03 | NUR ---
Shift report received from night RN. No events reported overnight. Pt awake & sitting up in bed watching tv. Denies pain or discomfort. Reports sleeping well overnight. AQ dressing L Hip CDI. Other needs denied. Call light in reach. Fall precautions in place.
--- NOTE | 2023-06-24 10:25 | NUR ---
SW Student faxed HH referral to [facility] (fax#[phone]).
--- NOTE | 2023-06-24 10:57 | NUR ---
Pt off unit for PT.
--- NOTE | 2023-06-24 11:17 | NUR ---
Pt back in his room after PT. He is sitting up in recliner w/ BLE elevated on footrest. Has ice pack on L hip. Pt reports "a little" pain & denies the need for pain medication at this time. Other needs denied. Call light in reach. Chair alarm on.
--- NOTE | 2023-06-24 14:07 | NUR ---
Will lack of transportation kept you from medical appts, meetings, work, or from getting things needed for daily living? no How often do you feel lonely or isolated from those around you? never Over the past 5 days, how much of the time has pain made it hard for you to sleep? rarely/not at all Over the past 5 days, how often have you limited your participation in therapy due to pain? rarely/not at all Over the past 5 days, how often have you limited your day-to-day activities because of pain? rarely/not at all
--- NOTE | 2023-06-24 15:38 | NUR ---
Abalone Fisherman participated in family meeting which included patient's legal guardian, Tala and case management social worker, Janis at bedside. [facility] opened the meeting by explaining it's purpose followed by report from IPR Physician. PT/OT provided report on patient's progress and recommendations. OT advised patient has had some difficulty with independently getting on his СВЕТЛАНА hose and left shoe. Patient's guardian, Tala questioned if patient needed to wear СВЕТЛАНА hose as he is on daily aspirin. Dr. Quijano advised this was recommended by the Ortho group that performed patient's surgery. Dr. Quijano also advised that there was a day that patient did not have them on here and his leg did have noticeable swelling. The team discussed having staff assist Henrry with his СВЕТЛАНА hose [facility]. LAN reviewed discharge date for tomorrow and recommendation for Home Health. LAN provided Medicare.gov list of agencies and Tala selected [facility]. [facility] Gonzales faxed referral. Following the meeting, Tala and Janis were at bedside discussing buttermaker planning for patient. At this time, patient will return to his apartment, however they are working on moving [facility] a [facility] for a higher level of supervision. At one point, Janis began discussing the СВЕТЛАНА hose and Tala stated it was "a non issue" because he did not need them. Tala advised the hosptial she worked at did not recommend СВЕТЛАНА hose and instead did BID aspirin. Tala also stated she is confident patient will be able to put on his left shoe independently. LAN received a phone call from [facility] and they advised they do not take patient's insurance, [employer]. LAN notified Tala of this and reviewed additional options. Tala asked if Home Health is even needed and LAN advised it is recommended by our therapy team. Tala is agreeable to have referral sent to [facility]. LAN contacted Lucas at [facility] and [facility] faxed referral. LAN emailed IM form to Tala, who reviewed it and returned it signed. LAN placed signed IM in chart.
--- NOTE | 2023-06-24 16:15 | NUR ---
Pt sitting up in recliner watching tv. Pt reports "a little" pain to L hip. Pain medication declined. Ice pack given. Other needs denied. Call light in reach. Chair alarm on.
--- NOTE | 2023-06-24 16:18 | NUR ---
Superintendent General spoke with Liz RN at [facility] about patient's СВЕТЛАНА hose. Liz advised they met today and plan to do the СВЕТЛАНА hose at [facility].
[2023-06-24 16:44] VITALS: BP 141/69; PULSE 93; TEMP 98.2
[2023-06-24 18:55] VITALS: BP_SYST 141
[2023-06-25 06:01] VITALS: BP 125/86; PULSE 81; TEMP 98.3
[2023-06-25 07:15] VITALS: BP_SYST 125
--- NOTE | 2023-06-25 07:16 | NUR ---
Shift report received from night RN. No events reported overnight. Pt up in recliner. He reports feeling ready for DC to [facility]. Denies pain/discomfort or other needs. Call light in reach. Bed alarm on.
[2023-06-25] MEDS ORDERED: FLOMAX 0.40.4 MG/CAP PO (09:28)
[2023-06-25] MEDS ORDERED: VITAMIN C500 MG PO (09:28)
[2023-06-25] MEDS ORDERED: DUO-KAPS1 CAP PO (09:28)
[2023-06-25] MEDS ORDERED: ASPI325T6 PO (09:28)
--- NOTE | 2023-06-25 09:53 | NUR ---
Call placed to [facility] re: removal of Aquacell prior to DC home today. Awaiting callback from Dr. Lyons's nurse.
--- NOTE | 2023-06-25 10:09 | NUR ---
Callback received from Dr. Lyons's nurse. Okay to remove dressing from L hip if no drainage. Dressing removed - noted to be clean/dry. Incision is well-approximated. Steri strips x 3 noted to distal end of incision. Discussed w/ pt that he may shower & steri strips should fall off on their own. He had no further questions.
--- NOTE | 2023-06-25 12:29 | NUR ---
Pt ate 100% of lunch independently. Pt supervised as he stood from toilet to ambulate to the bathroom w/ rolling walker. [facility]. Call light in reach. Chair alarm on.
--- NOTE | 2023-06-25 12:52 | NUR ---
DC Summary reviewed w/ the pt. Medication list sent to [facility]. Belongings gathered by nursing staff. 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 Pt ambulated off unit (per his request) w/ kirk brownlee escorted by [facility]OUT.
--- NOTE | 2023-06-25 14:16 | NUR ---
Discharge QIM scores were reviewed by the team. Code of 6 chosen for eating was determined by team discussion to be the most usual performance for this patient during the discharge assessment period. Code of 6 chosen for toileting hygiene was determined by team discussion to be the most usual performance for this patient during the discharge assessment period. Code of 6 chosen for toilet transfers was determined by team discussion to be the most usual performance for this patient during the discharge assessment period. Code of 5 chosen for shower/bathe self was determined by team discussion to be the most usual performance for this patient during the discharge assessment period. Code of 6 chosen for upper body dressing was determined by team discussion to be the most usual performance for this patient during the discharge assessment period. Code of 6 chosen for lower body dressing was determined by team discussion to be the most usual performance for this patient during the discharge assessment period. Code of 6 chosen for sit to lying was determined by team discussion to be the most usual performance for this patient during the discharge assessment period. Code of 6 chosen for lying to sitting was determined by team discussion to be the most usual performance for this patient during the discharge assessment period. Code of 6 chosen for sit to stand was determined by team discussion to be the most usual performance for this patient during the discharge assessment period. Code of 6 chosen for chair to bed was determined by team discussion to be the most usual performance for this patient during the discharge assessment period. Code of 6 chosen for walking 10 feet was determined by team discussion to be the most usual performance for this patient during the discharge assessment period. Code of 6 chosen for walking 50 feet w/ 2 turns was determined by team discussion to be the most usual performance before interventions for this patient during the discharge assessment period. Code of 6 chosen for walking 150 feet was determined by team discussion to be the most usual performance for this patient during the discharge assessment period.--Aleisha Gay,
--- NOTE | 2023-06-25 15:15 | NUR ---
Industrial Laborer provided discharge orders to [facility] and [facility] via secure email.
--- NOTE | 2023-06-28 13:58 | NUR ---
hot tamale worker contacted Lucas at [facility] and confirmed that they received home health orders and started care this date.
== END 2023-06-25 12:58 | disposition home health service (06) | DRG 561 ==
PROVIDERS: ADMIT Physical Medicine & Rehabilitation Sports Medicine
DX: S72.012D Unspecified intracapsular fracture of left femur, subsequent encounter for closed fracture with routine healing (principal); R26.89 Other abnormalities of gait and mobility; D64.9 Anemia, unspecified; E03.9 Hypothyroidism, unspecified; F32.A Depression, unspecified; E78.5 Hyperlipidemia, unspecified; G24.9 Dystonia, unspecified; G40.909 Epilepsy, unspecified, not intractable, without status epilepticus; R33.8 Other retention of urine; N40.1 Benign prostatic hyperplasia with lower urinary tract symptoms; G62.9 Polyneuropathy, unspecified; G47.00 Insomnia, unspecified; W19.XXXD Unspecified fall, subsequent encounter; Z96.652 Presence of left artificial knee joint; Z96.642 Presence of left artificial hip joint; Z79.891 Long term (current) use of opiate analgesic; Z79.899 Other long term (current) drug therapy; Z79.82 Long term (current) use of aspirin; Z74.09 Other reduced mobility
CPT/HCPCS: A9284